=== PATIENT | female | born 1990 | race Two or more races ===

== ENCOUNTER 2024-04-16 16:47 | Emergency (ER) | payer OTHER ==
[~2024-04-16] VITALS: Ht 152.4 cm; Wt 51.3 kg
[2024-04-16 17:44] LABS: HEMATOCRIT 33.6 % (36.0-45.00); HEMOGLOBIN 11.3 g/dL (12.0-15.00); MEAN CELL VOLUME 94.6 fL (80.00-100.00); MEAN CORPUSCULAR HEMOGLOBIN 31.9 pg (27.00-32.0); MEAN CORPUSCULAR HGB CONC 33.8 g/dl (32.0-36.0); PLATELET COUNT 352 K/uL (150-450); RED BLOOD COUNT 3.55 M/uL (4.00-6.00); RED CELL DISTRIBUTION WIDTH 13.5 % (11.5-14.5)
[2024-04-16 18:38] LABS: ALBUMIN 3.7 gm/dL (3.4-5.0); BILIRUBIN TOTAL 0.38 mg/dL (0.3-1.2); CALCIUM 8.8 mg/dL (8.5-10.1); CREATININE SERUM 0.46 mg/dL (0.55-1.02); GFR 154.58; GLOBULINA 4.5 G/DL (2.4-3.5); POTASSIUM 3.61 mEq/L (3.5-5.1); TOTAL PROTEIN 8.2 gm/dL (6.4-8.2)
[2024-04-16] MEDS ORDERED: FUSION PLUS CA1 EACH PO (19:49)
== END 2024-04-16 20:43 | disposition home or self-care (01) ==
LOC: ER 16:48
PROVIDERS: General Practice
DX: D64.9 Anemia, unspecified (principal); R42 Dizziness and giddiness